=== PATIENT | female | born 1955 | race Caucasian/White ===

== ENCOUNTER 2018-12-04 21:56 | Inpatient (IN) | payer MEDICAID, OTHER ==
[~2018-12-04] VITALS: Ht 167.6 cm; Wt 73.6 kg
--- NOTE | 2018-12-04 22:06 | NUR ---
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 Pt also c/o N/V with 1 episode vomiting while at home. Denies chest pain/shortness of breath. Pt placed on monitor. Safety measures implemented.
[2018-12-04] MEDS ORDERED: OMEP40CA37 PO (22:08)
[2018-12-04] MEDS ORDERED: PANTOPRAZOLE SODIUM 40 MG VIAL IV ONE (22:15)
[2018-12-04] MEDS ORDERED: ONDANSETRON 4 MG/2 ML VIAL ONE ×2 (22:15→23:57)
[2018-12-04] MEDS ORDERED: PANTOPRAZOLE SODIUM 40 MG VIAL ONE (22:15)
[2018-12-04] MEDS ORDERED: HYDROMORPHONE 1 MG/1 ML DISP.SYRIN IV ONE (22:15)
[2018-12-04] MEDS ORDERED: ONDANSETRON 4 MG/2 ML VIAL IV ONE (22:15)
[2018-12-04] MEDS ORDERED: IV NORMAL SALINE 1000 ML BAG IV ONE (22:15)
[2018-12-04] MEDS ORDERED: HYDROMORPHONE 1 MG/1 ML DISP.SYRIN ONE (22:15)
[2018-12-04 22:17] LABS: BASOPHILS % (AUTO) 0.5 % (0.0-2.0); EOSINOPHILS # (AUTO) 0.1 K/uL (0.0-0.7); EOSINOPHILS % (AUTO) 1.8 % (0.0-7.0); HEMATOCRIT 39.1 % (31.2-41.9); HEMOGLOBIN 12.9 g/dL (10.9-14.3); LYMPHOCYTES # (AUTO) 1.8 K/uL (20.0-40.0); LYMPHOCYTES % (AUTO) 27.9 % (20.5-51.5); MEAN CORPUSCULAR HEMOGLOBIN 29.4 uug (24.7-32.8); MEAN CORPUSCULAR HGB CONC 33 g/dL (32.3-35.6); MEAN CORPUSCULAR VOLUME 89.1 fL (75.5-95.3); MONOCYTES # (AUTO) 0.3 K/uL (2.0-10.0); MONOCYTES % (AUTO) 4.8 % (0.0-11.0); NEUTROPHILS # (AUTO) 4.1 K/uL (1.8-8.9); PLATELET COUNT (AUTO) 219 K/uL (179-408); RED BLOOD CELL COUNT(AUTO) 4.39 MIL/uL (3.63-4.92); WHITE BLOOD COUNT (AUTO) 6.4 K/uL (3.8-11.8)
--- NOTE | 2018-12-04 22:31 | NUR ---
Collected urine sample from pt, sent to lab. Pt went down to radiology dept for xray and CT scan.
[2018-12-04 22:41] LABS: *BLOOD, URINE 2+ (NEGATIVE); *CLARITY,URINE CLEAR (CLEAR); *COLOR,URINE YELLOW (YELLOW); *KETONES,URINE 2+ (NEGATIVE); LEUKOCYTE ESTERASE ,URINE TRACE (NEGATIVE); NITRITE, URINE NEGATIVE (NEGATIVE); UGLUCOSE NEGATIVE (NEGATIVE)
[2018-12-04 22:48] LABS: *BILIRUBIN,URIN 1+ (NEGATIVE)
--- NOTE | 2018-12-04 22:49 | NUR ---
Pt back from radiology dept. IV fluids infusing. Pt states pain relieved.
[2018-12-04 22:50] LABS: CREATININE 0.7 mg/dL (0.6-1.3); POTASSIUM 3.2 mmol/L (3.5-5.1)
[2018-12-04 22:57] LABS: BACTERIA,URINE NONE SEEN /HPF (NONE SEEN); RENAL EPITHELIAL CELLS,URINE FEW /LPF (NONE SEEN); SQUAMOUS EPITHELIAL CELL,UR FEW /HPF (NONE SEEN); TRANSITIONAL EPI CELLS,URINE FEW /LPF (NONE SEEN)
[2018-12-04 22:58] LABS: MUCUS,URINE FEW /LPF (0-FEW); URINE AMORPHOUS URATE MODERATE /HPF
[2018-12-04 23:00] LABS: BILIRUBIN,DIRECT 2.6 mg/dL (0.0-0.2); BILIRUBIN,TOTAL 3.6 mg/dL (0.2-1.0); TOTAL PROTEIN, SERUM 7.1 g/dL (6.4-8.2)
--- NOTE | 2018-12-04 23:13 | NUR ---
Paged [facility] for panel call. Pending call back from Seth Finch DNP.
--- NOTE | 2018-12-04 23:28 | NUR ---
Paged [facility] 2nd time for panel call. Pending call back.
--- NOTE | 2018-12-04 23:42 | NUR ---
Dr. Yuri RAMIREZ MD spoke with Dr. Alva (GI MD bus and sys integration senior manager). ERCP procedure unable to be provided. Pt needs to be transferred for higher level of care per MD.
--- NOTE | 2018-12-04 23:52 | NUR ---
Faxed over face sheet + summary report to Becki from [facility]: [phone]
[2018-12-05] MEDS ORDERED: ONDANSETRON IV *ER 4 MG/2 ML VIAL IV ONE
--- NOTE | 2018-12-05 00:19 | NUR ---
Spoke with nursing air conditioning supervisor at [facility], no GI doctor on-call at this time.
--- NOTE | 2018-12-05 00:49 | NUR ---
Called [facility], declined. [facility], declined. [facility], declined. [facility], declined. Dr. Welch spoke with Dr. Loyd (GI MD at [facility]) and was told watch caser needs to arrange transfer in the am)
--- NOTE | 2018-12-05 00:57 | NUR ---
Pt. admitted to Med/Surg , under care of Robby Werner DNP. Diagnosis: Cholecystitis Belongs List completed
--- NOTE | 2018-12-05 00:57 | NUR ---
Dr. Yuri RAMIREZ MD spoke with Robby Werner DNP.
[2018-12-05 01:10] VITALS: BP 118/57
--- NOTE | 2018-12-05 01:30 | NUR ---
RECEIVED PT FROM ER [facility]IA [facility]. UNDER CARE OF JOE CHOWDHURY DNP DX: CHOLECYSTITIS. PT SHOWS NO SIGNS OF ACUTE DISTRESS. AT BEDSIDE. BELONGING LIST DONE. IV SITE INTACT. BELONGING LIST DONE. ADMISSION PROCESS AND CARE PLAN INITIATED. CALL LIGHT WITHIN REACH. SAFETY AND COMFORT PROVIDED. WILL CONTINUE TO MONITOR.
[2018-12-05] MEDS ORDERED: IV NS 1000 ML 1,000 ML IV PRN (02:48)
[2018-12-05] MEDS ORDERED: HYDROMORPHONE 1 MG/1 ML DISP.SYRIN IV PRN (03:00)
[2018-12-05] MEDS ORDERED: Z GUARD REMEDY PASTE 57 GM TUBE TOP PRN (03:00)
[2018-12-05] MEDS ORDERED: ONDANSETRON 4 MG/2 ML VIAL IV PRN (03:00)
[2018-12-05] MEDS ORDERED: PIPERACILLIN/TAZOBACTAM/D5W 3.375 G in PREMIXED 1 EACH IV ONE ×2 (03:30→06:00)
[2018-12-05 03:45] VITALS: BP 115/64
[2018-12-05] MEDS: ACETAMINOPHEN 325 MG TABLET PO PRN ×2 (04:30→14:10)
[2018-12-05] MEDS ORDERED: PIPERACILLIN/TAZOBACTAM/D5W 50 ML IV ONE (05:58)
--- NOTE | 2018-12-05 06:42 | NUR ---
PT SLEPT THROUGHOUT THE SHIFT. PT SHOWS NO SIGNS OF ACUTE DISTRESS. PRESCRIBED MEDICATION GIVEN AND PT TOLERATED IT WELL. PT GIVEN TYLENOL FOR PAIN. PT TOLERATED IT WELL. CALL LIGHT WITHIN REACH. SAFETY AND COMFORT PROVIDED. ALL NEEDS ARE MET. WILL ENDORSE ACCORDINGLY TO INCOMING NURSE FOR CONTINUITY OF CARE.
[2018-12-05 07:09] LABS: BASOPHILS % (AUTO) 0.6 % (0.0-2.0); EOSINOPHILS % (AUTO) 0.2 % (0.0-7.0); HEMATOCRIT 33.6 % (31.2-41.9); HEMOGLOBIN 11.2 g/dL (10.9-14.3); LYMPHOCYTES # (AUTO) 0.9 K/uL (20.0-40.0); LYMPHOCYTES % (AUTO) 20.9 % (20.5-51.5); MEAN CORPUSCULAR HEMOGLOBIN 29.7 uug (24.7-32.8); MEAN CORPUSCULAR HGB CONC 34 g/dL (32.3-35.6); MEAN CORPUSCULAR VOLUME 88.8 fL (75.5-95.3); MONOCYTES # (AUTO) 0.2 K/uL (2.0-10.0); MONOCYTES % (AUTO) 4.1 % (0.0-11.0); NEUTROPHILS # (AUTO) 3.4 K/uL (1.8-8.9); NEUTROPHILS % (AUTO) 74.2 % (38.5-71.5); PLATELET COUNT (AUTO) 200 K/uL (179-408); RED BLOOD CELL COUNT(AUTO) 3.78 MIL/uL (3.63-4.92); WHITE BLOOD COUNT (AUTO) 4.5 K/uL (3.8-11.8)
[2018-12-05 07:19] LABS: BILIRUBIN,TOTAL 3.5 mg/dL (0.2-1.0); CREATININE 0.7 mg/dL (0.6-1.3); MAGNESIUM 1.8 mg/dL (1.8-2.4); PHOSPHOROUS 4.3 mg/dL (2.5-4.9); POTASSIUM 3.6 mmol/L (3.5-5.1); TOTAL PROTEIN, SERUM 6.5 g/dL (6.4-8.2)
[2018-12-05 11:25] VITALS: BP 126/79
[2018-12-05] MEDS ORDERED: PIPERACILLIN/TAZOBACTAM/D5W 3.375 G in PREMIXED 1 EACH IV SCH ×4 (14:00)
--- NOTE | 2018-12-05 15:22 | NUR ---
pt left the hospital amrosalind ,dr marsh and nursing securities vault supervisor and charge nurse made aware ,heplock removed ,side effect and all the contraindication explain to the pt and her family ,pt said she is fine and going home and she will follow up with her dr,pt is axox4 brp ,pt have her belonging with her.and pt left the facility with her ,
== END 2018-12-05 15:25 | disposition left against medical advice (07) ==
LOC: ER 21:58 → MED 12-05 00:57
PROVIDERS: ADMIT Nurse Practitioner Acute Care; ATTEND Internal Medicine
DX: K80.42 Calculus of bile duct with acute cholecystitis without obstruction (principal); N28.1 Cyst of kidney, acquired; M51.36 Other intervertebral disc degeneration, lumbar region; J98.11 Atelectasis; E87.6 Hypokalemia; N20.0 Calculus of kidney
CPT/HCPCS: 36415; 70030-TC; 71045; 83690; 83735; 84100; 85025; 85730; 87086; 93005; A4663; C9113; G0378; J1170; J2405; J2543; J7030